=== PATIENT | female | born 1995 | race Caucasian/White ===

== ENCOUNTER 2019-04-04 10:00 | Emergency (ER) | payer MEDICAID ==
[~2019-04-04] VITALS: Ht 157.5 cm; Wt 66.8 kg
[~2019-04-04 10:00] MED LIST: ACET325T33 PO; ONDA4TAB14 PO
[2019-04-04 10:08] VITALS: Ht 157.5 cm; Wt 66.8 kg
[2019-04-04] MEDS ORDERED: ONDANSETRON 4 MG INJ IV STA (10:41)
[2019-04-04 12:18] VITALS: BP 105/57; PULSE 76; RESP 16
--- NOTE | 2019-04-04 14:38 | ERD ---
ER Documentation Chief Complaint Chief Complaint diarrhea x3 days, blood pressure low, 16wks HPI 24-year-old female presenting with diarrhea nausea vomiting x1 day. Patient states she is 16 weeks and denies any vaginal bleeding or pelvic pain. G1, P0. She denies any dysuria. LNMP November 04, 2018 with no complications of the . Medical history denies. NKDA. Surgical history denies. Social history denies ROS All systems reviewed and are negative except as per history of present illness. Medications Home Meds Active Scripts Acetaminophen* (Tylenol*) 325 Mg Tablet, 2 TAB PO Q6 PRN for PAIN AND OR ELEVATED TEMP, #20 TAB Prov:ESTRADA MAHAN PA-C 04/04/19 Ondansetron (Ondansetron Odt) 4 Mg Tab.rapdis, 4 MG PO Q6H PRN for NAUSEA AND/OR VOMITING, #10 TAB Prov:ESTRADA MAHAN PA-C 04/04/19 Allergies Allergies: Coded Allergies: No Known Allergy (Unverified , 04/04/19) PMhx/Soc Medical and Surgical Hx: pt denies Medical Hx, pt denies Surgical Hx Hx Alcohol Use: No Hx Substance Use: No Hx Tobacco Use: No Smoking Status: Never smoker FmHx Family History: No diabetes, No coronary disease, No other Physical Exam Vitals Vital Signs Date Temp Pulse Resp B/P (MAP) Pulse Ox O2 O2 Flow FiO2 Time Delivery Rate 04/04/19 98.2 76 16 105/57 100 Room Air 12:18 (73) 04/04/19 98.2 74 18 114/61 100 10:08 (78) Physical Exam GENERAL: The patient is well-appearing, well-nourished, in no acute distress HEENT: Atraumatic. Conjunctivae are pink. Pupils equal, round, and reactive to light. There is no scleral icterus. Tympanic membranes clear bilaterally. Oropharynx clear. CHEST: Clear to auscultation bilaterally. There are no rales, wheezes or rh onchi. HEART: Regular rate and rhythm. No murmurs, clicks, rubs or gallops. ABDOMEN:Soft, nontender and nondistended. Good bowel sounds. No rebound or guarding. No gross peritonitis. No gross organomegaly or masses. Result Diagram: 04/04/19 1058 04/04/19 1058 Results 24 hrs Laboratory Tests Test 04/04/19 10:54 04/04/19 10:58 Urine Color STRAW Urine Clarity CLEAR Urine pH 7.0 Urine Specific Kaiser 1.005 Urine Ketones NEGATIVE mg/dL Urine Nitrite NEGATIVE mg/dL Urine Bilirubin NEGATIVE mg/dL Urine Urobilinogen NEGATIVE mg/dL Urine Leukocyte Esterase NEGATIVE Balbir/ul Urine Hemoglobin NEGATIVE mg/dL Urine Glucose NEGATIVE mg/dL Urine Total Protein NEGATIVE mg/dl White Blood Count 13.9 10^3/ul Red Blood Count 3.96 10^6/ul Hemoglobin 12.1 g/dl Hematocrit 35.6 % Mean Corpuscular Volume 89.9 fl Mean Corpuscular Hemoglobin 30.6 pg Mean Corpuscular Hemoglobin Concent 34.0 g/dl Red Cell Distribution Width 13.2 % Platelet Count 231 10^3/UL Mean Platelet Volume 10.4 fl Immature Granulocytes % 0.500 % Neutrophils % 80.1 % Lymphocytes % 13.3 % Monocytes % 5.8 % Eosinophils % 0.1 % Basophils % 0.2 % Nucleated Red Blood Cells % 0.0 /100WBC Immature Granulocytes # 0.070 10^3/ul Neutrophils # 11.1 10^3/ul Lymphocytes # 1.8 10^3/ul Monocytes # 0.8 10^3/ul Eosinophils # 0.0 10^3/ul Basophils # 0.0 10^3/ul Nucleated Red Blood Cells # 0.0 10^3/ul Sodium Level 138 mmol/L Potassium Level 4.0 mmol/L Chloride Level 103 mmol/L Carbon Dioxide Level 26 mmol/L Anion Gap 9 Blood Urea Nitrogen 7 mg/dl Creatinine 0.43 mg/dl Est Glomerular Filtrat Rate mL/min > 60 mL/min Glucose Level 89 mg/dl Calcium Level 9.8 mg/dl Total Bilirubin 0.4 mg/dl Direct Bilirubin 0.00 mg/dl Indirect Bilirubin 0.4 mg/dl Aspartate Amino Transf (AST/SGOT) 20 IU/L Alanine Aminotransferase (ALT/SGPT) 14 IU/L Alkaline Phosphatase 73 IU/L Total Protein 7.7 g/dl Albumin 4.2 g/dl Globulin 3.50 g/dl Albumin/Globulin Ratio 1.20 Lipase 28 U/L Current Medications Medications Dose Sig/Florentino Start Time Status Last (Trade) Ordered Route PRN Stop Time Admin Dose Reason Admin Ondansetron 4 mg ONCE STAT 04/04/19 DC 04/04/19 HCl (Zofran IV 10:41 11:04 Inj) 04/04/19 10:42 Procedures/MDM DIAGNOSTIC IMAGING REPORT Patient: ARSLAN NATION : 1995 Age: 24 Sex: F MR #: [id number] DOS: 04/04/19 1041 Ordering MD: OBI MAHAN PA-C Location: [facility] Room/Bed: PROCEDURE: US Abdomen. CLINICAL INDICATION: abdominal pain TECHNIQUE: Multiple real-time images were acquired of the patient's right upper quadrant abdomen and retroperitoneum utilizing a high resolution transducer. COMPARISON: None FINDINGS: The liver demonstrates normal echogenicity. The liver is normal in size and no focal solid lesions are seen. The liver measures 15 cm in length. The portal vein is patent with normal direction of flow. No intrahepatic biliary dilatation is seen. No gallstones are identified within the gallbladder. There is no pericholecystic fluid or gallbladder wall thickening. The common bile duct measures 5 mm in maximal dimension. The pancreas is not well seen due to overlying bowel gas. No free fluid is identified. The right kidney is normal in size, and demonstrate normal echogenicity and cortical thickness. The right kidney measures 10.6 cm in long dimension. There is no evidence of hydronephrosis. There are no kidney stones. RPTAT: AA IMPRESSION: Unremarkable right upper quadrant abdominal ultrasound. MDM: 24-year-old female presenting with nausea and vomiting. Patient blood work is within normal limits and vitals are stable. Patient is nontoxic-appearing. Patient is discharged with strict ER precautions and told to follow-up with primary care within 1 to 2 days for close evaluation. Patient is told if symptoms change or worsen to return immediately to the ER. All questions answered at discharge Departure Diagnosis: Primary Impression: Viral gastroenteritis Condition: Stable Patient Instructions: Nausea and Vomiting-Adult, Diarrhea, Viral (Child) (Adult) Referrals: COMM[facility]ITY [facility]IN[facility] YOU HAVE RECEIVED A MEDICAL SCREENING EXAM AND THE RESULTS INDICATE THAT YOU DO NOT HAVE A CONDITION THAT REQUIRES URGENT TREATMENT IN THE EMERGENCY DEPARTMENT. FURTHER EVALUATION AND TREATMENT OF YOUR CONDITION CAN WAIT UNTIL YOU ARE SEEN IN YOUR DOCTORS OFFICE WITHIN THE NEXT 1-2 DAYS. IT IS YOUR RESPONSIBILITY TO MAKE AN APPOINTMENT FOR FOLOW-UP CARE. IF YOU HAVE A PRIMARY DOCTOR --you should call your primary doctor and schedule an appointment IF YOU DO NOT HAVE A PRIMARY DOCTOR YOU CAN CALL OUR PHYSICIAN REFERRAL HOTLINE AT IF YOU CAN NOT AFFORD TO SEE A PHYSICIAN YOU CAN CHOSE FROM THE FOLLOWING [facility] [address] [facility] [address] [facility] [facility] [address] [facility] [address] [facility] [address] [facility]. [facility] [address] Additional Instructions: FOLLOW UP WITH YOUR PRIMARY CARE PHYSICIAN TOMORROW.Return to this facility if you are not improving as expected. ESTRADA MAHAN PA-C Apr 04, 2019 14:38
== END 2019-04-04 12:19 | disposition home or self-care (01) ==
LOC: FTE 10:00
DX: O26.892 Other specified pregnancy related conditions, second trimester (principal); A08.4 Viral intestinal infection, unspecified; Z3A.16 16 weeks gestation of pregnancy
CPT/HCPCS: 36415; 76705; 80053; 81003; 83690; 85025; 96374; J2405; Z7502